=== PATIENT | male | born 1935 | race Caucasian/White ===

== ENCOUNTER 2019-12-13 18:24 | Inpatient (IN) ==
[2019-12-13] MEDS ORDERED: SODIUM CHLORIDE 0.9% 2,000 ML IV STA (18:38)
[2019-12-13 19:15] LABS: Basophils % 0.1 % (0.0-0.8); Eosinophils % 0.1 % (0.00-10.9); Hematocrit 42.3 VOL% (42.0-52.0); Hemoglobin 14.2 GM/DL (14.0-18.0); Immature Granulocytes % 0.5 %; Immature Granulocytes Absolute 0.05 #; Lymphocytes # 0.6 10*3/uL (1.4-4.0); Mean Corpuscular HGB Conc 33.6 GM/DL (32-36); Mean Corpuscular Volume 97.7 FL (87-102); Mean Platelet Volume 10.6 FL (9.6-12.0); Monocytes % 9.4 % (1.7-12.7); Neutrophils % 83.9 % (38.7-73.9); Platelet Count 135 T/CUMM (130-400); Red Blood Count 4.33 MC/CUMM (3.8-5.5); Red Cell Distribution Width 13.9 % (9.3-17.3)
[2019-12-13 19:25] LABS: PT Patient Result 11.1 SECS (9.6-12.2); Partial Thromboplastin Time < 21.0 SECS (20.8-36.0)
[2019-12-13 19:42] LABS: Albumin 3.3 G/DL (3.4-5.0); Bilirubin,Total 2.1 MG/DL (0.2-1.0); CKMB % 1.5 %; Calcium 9.1 MG/DL (8.5-10.1); Osmolality,Calculated 317.1 MOS/KG (273-304); Total Protein 7.5 G/DL (6.4-8.3); Troponin I 0.036 NG/ML (0.00-0.045)
[2019-12-13 20:13] LABS: Apearance,Urine CLEAR (Clear); Bacteria,Urine Occasional /HPF (Few); Bilirubin,Urine Negative (Negative); Blood, Urine Moderate mg/dL (Negative); Glucose,Urine (UA) Negative (Negative); Hyaline Casts,Urine 6 /LPF (0-3); Ketones,Urine 20 mg/dL (Negative); Mucus,Urine Occasional /LPF (Occasional); Nitrite,Urine Negative (Negative); Protein,Urine Negative; RBC,Urine 16 /HPF (0-4); Squamous Epithelial Cell,Urine Occasional /HPF (0-10); Urine Color Yellow (Yellow); Urine Specific Gravity 1.024 (1.001-1.035); Urine Urobilinogen < 2.0 EU/DL (0.2-1.0); WBC,Urine 1 /HPF (0-6)
[2019-12-13 21:28] LABS: Risk Ratio 3.7; Thyroid Stimulating Hormone 1.48 uIU/ml (0.358-3.74); VLDL CHOLESTEROL 25.2 MG/DL
[2019-12-14] MEDS: SODIUM CHLORIDE 0.45% 1,000 ML IV SCH ×2 (00:05→08:24)
[2019-12-14] MEDS: ENOXAPARIN 40 MG/0.4 ML SYRINGE SUBCUT SCH ×2 (00:50→21:36)
[2019-12-14] MEDS: LEVOTHYROXINE 25 MCG TABLET PO SCH (05:55)
[2019-12-14 06:02] LABS: Basophils % 0.1 % (0.0-0.8); Eosinophils # 0.1 10*3/uL (0.0-0.87); Eosinophils % 0.9 % (0.00-10.9); Hematocrit 36.3 VOL% (42.0-52.0); Hemoglobin 11.9 GM/DL (14.0-18.0); Immature Granulocytes % 0.4 %; Immature Granulocytes Absolute 0.03 #; Lymphocytes # 0.7 10*3/uL (1.4-4.0); Lymphocytes % 10.1 % (21.2-54.2); Mean Corpuscular HGB Conc 32.8 GM/DL (32-36); Mean Corpuscular Volume 99.5 FL (87-102); Mean Platelet Volume 10.4 FL (9.6-12.0); Monocytes % 14.6 % (1.7-12.7); Neutrophils % 73.9 % (38.7-73.9); Platelet Count 121 T/CUMM (130-400); Red Blood Count 3.65 MC/CUMM (3.8-5.5); Red Cell Distribution Width 14.1 % (9.3-17.3); White Blood Count 6.9 T/CUMM (4-12)
[2019-12-14 06:23] LABS: Calcium 8.2 MG/DL (8.5-10.1); Osmolality,Calculated 316.7 MOS/KG (273-304)
[2019-12-14] MEDS: DEXTROSE 5% 1,000 ML IV SCH (08:31)
[2019-12-14] MEDS: PANTOPRAZOLE 40 MG TABLET PO SCH (11:11)
[2019-12-14] MEDS: METOPROLOL TARTRATE 25 MG TABLET PO SCH ×2 (11:11→21:37)
[2019-12-14] MEDS: ONDANSETRON 4 MG/2 ML VIAL IV PRN (13:32)
[2019-12-14 14:33] LABS: Osmolality,Calculated 307.3 MOS/KG (273-304)
[2019-12-14] MEDS: ATORVASTATIN 20 MG TABLET PO SCH (21:37)
[2019-12-15 04:48] LABS: Basophils % 0.3 % (0.0-0.8); Eosinophils # 0.2 10*3/uL (0.0-0.87); Eosinophils % 2.1 % (0.00-10.9); Hematocrit 34.6 VOL% (42.0-52.0); Hemoglobin 11.3 GM/DL (14.0-18.0); Immature Granulocytes % 0.8 %; Immature Granulocytes Absolute 0.06 #; Lymphocytes # 1.1 10*3/uL (1.4-4.0); Lymphocytes % 14.6 % (21.2-54.2); Mean Corpuscular HGB Conc 32.7 GM/DL (32-36); Mean Corpuscular Volume 99.4 FL (87-102); Monocytes % 10.3 % (1.7-12.7); Neutrophils % 71.9 % (38.7-73.9); Platelet Count 117 T/CUMM (130-400); Red Blood Count 3.48 MC/CUMM (3.8-5.5); Red Cell Distribution Width 14.1 % (9.3-17.3); White Blood Count 7.6 T/CUMM (4-12)
[2019-12-15 05:12] LABS: Calcium 8.2 MG/DL (8.5-10.1); Osmolality,Calculated 304.3 MOS/KG (273-304)
[2019-12-15] MEDS: LEVOTHYROXINE 25 MCG TABLET PO SCH (05:55)
[2019-12-15] MEDS: DEXTROSE 5% 1,000 ML IV SCH ×3 (05:55→23:59)
[2019-12-15] MEDS: TAMSULOSIN 0.4 MG CAPSULE PO SCH (08:36)
[2019-12-15] MEDS: METOPROLOL TARTRATE 25 MG TABLET PO SCH ×2 (08:36→21:18)
[2019-12-15] MEDS: PANTOPRAZOLE 40 MG TABLET PO SCH (08:36)
[2019-12-15] MEDS ORDERED: TUBERCULIN SKIN TEST 0.1 ML SYRINGE INTRADERM ONE (14:11)
[2019-12-15 15:53] LABS: Hepatitis B Core IgM Quant 0.09 Index; Hepatitis B Surface Ag Quant < 0.10 Index; Hepatitis B Surface Ag Result Negative (Negative); Hepatitis C Virus Ab Quant 0.07 Index; Hepatitis C Virus Ab Result Negative (Negative)
[2019-12-15] MEDS: ATORVASTATIN 20 MG TABLET PO SCH (21:18)
[2019-12-15] MEDS: ENOXAPARIN 40 MG/0.4 ML SYRINGE SUBCUT SCH (21:18)
[2019-12-16 04:52] LABS: Basophils % 0.3 % (0.0-0.8); Eosinophils # 0.4 10*3/uL (0.0-0.87); Hematocrit 31.4 VOL% (42.0-52.0); Hemoglobin 10.3 GM/DL (14.0-18.0); Immature Granulocytes Absolute 0.08 #; Lymphocytes # 1.6 10*3/uL (1.4-4.0); Lymphocytes % 20.5 % (21.2-54.2); Mean Corpuscular HGB Conc 32.8 GM/DL (32-36); Mean Corpuscular Volume 97.8 FL (87-102); Mean Platelet Volume 11.8 FL (9.6-12.0); Monocytes % 8.7 % (1.7-12.7); Neutrophils % 64.5 % (38.7-73.9); Platelet Count 113 T/CUMM (130-400); Red Blood Count 3.21 MC/CUMM (3.8-5.5); Red Cell Distribution Width 13.9 % (9.3-17.3); White Blood Count 7.7 T/CUMM (4-12)
[2019-12-16 05:11] LABS: Calcium 7.6 MG/DL (8.5-10.1); Osmolality,Calculated 285.5 MOS/KG (273-304)
[2019-12-16] MEDS: LEVOTHYROXINE 25 MCG TABLET PO SCH (05:26)
[2019-12-16] MEDS: DEXTROSE 5% 1,000 ML IV SCH (05:26)
[2019-12-16] MEDS ORDERED: POTASSIUM CHLORIDE 20 MEQ TABLET PO ONE (08:34)
[2019-12-16] MEDS: PANTOPRAZOLE 40 MG TABLET PO SCH (11:22)
[2019-12-16] MEDS: METOPROLOL TARTRATE 25 MG TABLET PO SCH ×2 (11:22→20:12)
[2019-12-16] MEDS: ATORVASTATIN 20 MG TABLET PO SCH (20:12)
[2019-12-16] MEDS: ENOXAPARIN 40 MG/0.4 ML SYRINGE SUBCUT SCH (20:12)
[2019-12-17] MEDS: ONDANSETRON 4 MG/2 ML VIAL IV PRN (03:44)
[2019-12-17] MEDS: LEVOTHYROXINE 25 MCG TABLET PO SCH (06:23)
[2019-12-17] MEDS: TAMSULOSIN 0.4 MG CAPSULE PO SCH (08:48)
[2019-12-17] MEDS: METOPROLOL TARTRATE 25 MG TABLET PO SCH ×2 (08:48→20:43)
[2019-12-17] MEDS: PANTOPRAZOLE 40 MG TABLET PO SCH (08:48)
[2019-12-17] MEDS ORDERED: POTASSIUM CHLORIDE 20 MEQ TABLET PO ONE (15:44)
[2019-12-17] MEDS: ATORVASTATIN 20 MG TABLET PO SCH (20:43)
[2019-12-18 05:33] LABS: Osmolality,Calculated 286.3 MOS/KG (273-304)
[2019-12-18] MEDS: LEVOTHYROXINE 25 MCG TABLET PO SCH (05:44)
[2019-12-18] MEDS: ONDANSETRON 4 MG/2 ML VIAL IV PRN (06:31)
[2019-12-18] MEDS: PANTOPRAZOLE 40 MG TABLET PO SCH (09:14)
[2019-12-18] MEDS: METOPROLOL TARTRATE 25 MG TABLET PO SCH (09:14)
[2019-12-18 11:58] VITALS: BP 108/66
== END 2019-12-18 15:45 | DRG 640 ==
LOC: EDBD → EDUNIT# → N.ED 18:24 → SUATTDRO 12-14 00:38 → N.EDINP 12-14 00:38 → N.4E 12-14 01:41
PROVIDERS: ADMIT Internal Medicine; ATTEND Internal Medicine